=== PATIENT | male | born 1965 | race African-American/Black ===

== ENCOUNTER 2023-02-16 20:42 | Emergency (ER) | payer MEDICAID ==
[~2023-02-16] VITALS: Ht 180.3 cm; Wt 79.5 kg
[~2023-02-16 20:42] MED LIST: NOCURR
[2023-02-16 22:12] VITALS: BP 119/71; PULSE 72; RESP 13; TEMP 98.3
[2023-02-16] MEDS ORDERED: AMOX250C4 PO (22:49)
== END 2023-02-16 23:51 | disposition home or self-care (01) ==
LOC: EMS 20:43
DX: L01.00 Impetigo, unspecified (principal); I88.9 Nonspecific lymphadenitis, unspecified
CPT/HCPCS: 99283; Z7502